=== PATIENT | female | born 1950 | race Caucasian/White ===

== ENCOUNTER → 2017-06-23 | Outpatient (CLI) | payer MEDICARE | END | disposition home or self-care (01) | LOC: CFH 08:09 | PROVIDERS: ATTEND Internal Medicine | DX: R05 Cough (principal); R06.02 Shortness of breath | CPT/HCPCS: 71250 ==

== ENCOUNTER 2019-11-09 13:48 | Outpatient (CLI) | payer MEDICARE ==
[2019-11-09] MEDS ORDERED: METAMUCIL PO (14:20)
[2019-11-09] MEDS ORDERED: [UNRECOGNIZED DRUG - OTHER] PO (14:20)
[2019-11-09] MEDS ORDERED: FLUTICASONE PO (14:20)
[2019-11-09] MEDS ORDERED: HYDROCHLOROTH12.5 MG PO (14:20)
[2019-11-09] MEDS ORDERED: ALBU8.5H8 INH (14:20)
[2019-11-09] MEDS ORDERED: LEVO25TA4 PO (14:20)
[2019-11-09] MEDS ORDERED: OXYB10TA2 PO (14:20)
[2019-11-09] MEDS ORDERED: AMLO10TA8 PO (14:20)
[2019-11-09] MEDS ORDERED: LOSA50TA14 PO (14:20)
[2019-11-09] MEDS ORDERED: OMEP-110 PO (14:20)
[2019-11-09 15:11] LABS: BASOPHILS # (AUTO) 0.07 x10^3/uL (0-0.1); BASOPHILS % (AUTO) 1 % (0-1); EOSINOPHILS # (AUTO) 0.43 x10^3/uL (0-0.4); EOSINOPHILS % (AUTO) 5 % (1-7); LYMPHOCYTES # (AUTO) 2.26 x10^3/uL (1-3.4); LYMPHOCYTES % (AUTO) 27 % (22-44); MD NO; MEAN CORPUSCULAR HEMOGLOBIN 30.3 pg (27.0-34.8); MEAN CORPUSCULAR HGB CONC 32.9 g/dL (32.4-35.8); MEAN CORPUSCULAR VOLUME 92.2 fL (80-100); MEAN PLATELET VOLUME 8.7 fL (7.4-10.4); MONOCYTES # (AUTO) 0.67 x10^3/uL (0.2-0.8); MONOCYTES % (AUTO) 8 % (2-9); NEUTROPHILS # (AUTO) 4.97 x10^3/uL (1.8-6.8); NEUTROPHILS % (AUTO) 59 % (42-75); PLATELET COUNT 339 x10^3/uL (130-400); RED BLOOD COUNT 4.98 x10^6/uL (3.82-5.3); RED CELL DISTRIBUTION WIDTH 13.4 % (9.6-15.2)
[2019-11-09 15:14] LABS: ALANINE AMINOTRANSFERASE 37 U/L (12-78); ALBUMIN 3.6 g/dL (3.4-5.0); ANION GAP 6 mmol/L (5-15); CALCIUM 8.7 mg/dL (8.5-10.1); CHLORIDE 106 mmol/L (98-107)
[2019-11-09 15:17] LABS: ALKALINE PHOSPHATASE 104 U/L (45-117); BILIRUBIN,TOTAL 0.3 mg/dL (0.2-1.0); CREATININE 0.72 mg/dL (0.55-1.02); TOTAL PROTEIN 7.7 g/dL (6.4-8.2)
[2019-11-09 15:25] LABS: INTERNATIONAL NORMALIZED RATIO 0.98 (0.93-1.1); PROTHROMBIN TIME 10.3 Seconds (9.6-11.5)
== END 2019-11-09 23:59 | disposition home or self-care (01) ==
LOC: STAR 13:48
PROVIDERS: ATTEND Orthopaedic Surgery
DX: M17.11 Unilateral primary osteoarthritis, right knee (principal); M25.561 Pain in right knee
CPT/HCPCS: 36415; 80053; 83036; 85025; 85610; 85730; 87081; 93005

== ENCOUNTER 2019-11-16 09:35 | Observation (INO) | payer MEDICARE ==
[~2019-11-16] VITALS: Ht 165.1 cm; Wt 106.6 kg
[2019-11-16] MEDS: NS + 20MEQ KCL 1,000 ML IV SCH ×2 (06:24→21:00)
[2019-11-16] MEDS: OMEPRAZOLE 20 MG CAPSULE.DR PO SCH (09:00)
[~2019-11-16 09:35] MED LIST: ALBU8.5H8 INH; AMLO10TA8 PO; BISACODYL 10 MG SUPP PR PRN; CEFAZOLIN 1,000 MG ONE; DIPHENHYDRAMINE 25 MG CAPSULE PO PRN; EPINEPHRINE 1 MG/ML, 1ML ONE; FENTANYL PF 250 MCG/5ML ONE; FLUTICASONE PO; HYDROCHLOROTH12.5 MG PO; HYDROcodone/APAP 5/325 TABLET PO PRN; HYDROmorphone 1 MG/ML, 1ML INJ IV PRN; KETOROLAC 60 MG/2 ML ONE; LEVO25TA4 PO; LOSA50TA14 PO; MAGNESIUM HYDROXIDE 8%, 30ML UDC PO PRN; METAMUCIL PO; MIDAZOLAM 1 MG/ML, 2ML ONE; OMEP-110 PO; ONDANSETRON 2MG/ML, 2ML IV PRN; ONDANSETRON 2MG/ML, 2ML ONE; ONDANSETRON 4 MG TABLET PO PRN; OXYB10TA2 PO; PROPOFOL 10 MG/ML, 20ML ONE; ROPIvacaine/PF 0.5%, 30 ML ONE; SCOPOLAMINE PATCH, 1.5MG PATCH.TD72 TD ONE; SENNA/DOCUSATE TABLET PO PRN; SODIUM CHLORIDE 0.9% 50 ML ONE; TEMPLATE NON-FORMULARY MED. (Albuterol Sulfate (Proair Hfa) 1 PUFF) INH SCH; TRANEXAMIC ACID 100 MG/ML, 10ML ONE; VANCOMYCIN 1,000 MG ONE; ZOLPIDEM 5MG TABLET PO PRN; [UNRECOGNIZED DRUG - OTHER] PO
[2019-11-16] MEDS ORDERED: LACTATED RINGERS 1,000 ML IV SCH (09:54)
[2019-11-16] MEDS ORDERED: LIDOCAINE-MPF 1%, 2ML INFIL ONE (10:00)
[2019-11-16] MEDS ORDERED: GABAPENTIN 300 MG CAPSULE PO ONE (10:00)
[2019-11-16] MEDS ORDERED: ACETAMINOPHEN 500 MG TABLET PO ONE (10:00)
[2019-11-16 10:07] VITALS: BP 177/80
[2019-11-16] MEDS ORDERED: LIDOCAINE-MPF 1%, 2ML ONE (10:13)
[2019-11-16] MEDS ORDERED: ACETAMINOPHEN 500 MG TABLET ONE (10:38)
[2019-11-16] MEDS ORDERED: LORazepam 2 MG/ML, 1ML IVPush PRN (11:30)
[2019-11-16] MEDS ORDERED: FENTANYL PF 100 MCG/2ML IV PRN (11:30)
[2019-11-16] MEDS ORDERED: HYDROmorphone 1 MG/ML, 1ML INJ IVPush PRN (11:30)
[2019-11-16] MEDS ORDERED: ONDANSETRON 2MG/ML, 2ML IV PRN (11:30)
[2019-11-16] MEDS ORDERED: LABETALOL 5MG/ML, 20ML IV PRN (11:30)
[2019-11-16] MEDS ORDERED: hydrALAzine 20 MG/ML, 1ML IV PRN (11:30)
[2019-11-16] MEDS ORDERED: OXYcodone 5 MG/5 ML ORAL.SOL UDC PO PRN (11:30)
[2019-11-16] MEDS ORDERED: NEOSTIGMINE 1 MG/ML, 10ML ONE (12:25)
[2019-11-16] MEDS ORDERED: GLYCOPYRROLATE 0.2MG/1ML, 5ML ONE (12:25)
[2019-11-16] MEDS ORDERED: MEPERIDINE/PF 25MG/ML,1ML ONE (12:51)
[2019-11-16] MEDS ORDERED: MEPERIDINE/PF 25MG/ML,1ML IVPush PRN (13:00)
[2019-11-16] MEDS ORDERED: FENTANYL PF 100 MCG/2ML ONE (13:25)
[2019-11-16] MEDS ORDERED: OXYcodone 5 MG/5 ML ORAL.SOL UDC ONE (13:26)
[2019-11-16] MEDS ORDERED: hydrALAzine 20 MG/ML, 1ML ONE (13:53)
[2019-11-16 14:21] VITALS: BP 155/73
[2019-11-16] MEDS: FLUTICASONE NASAL SPRAY 16GM NAS SCH (14:30)
[2019-11-16] MEDS: LOSARTAN 50MG TABLET PO SCH (15:50)
[2019-11-16] MEDS: DOCUSATE 100 MG CAPSULE PO SCH ×2 (15:50→20:26)
[2019-11-16] MEDS: HYDROCHLOROTHIAZIDE 12.5 MG CAPSULE PO SCH (15:50)
[2019-11-16] MEDS: ASPIRIN 81 MG TABLET EC PO SCH (17:24)
[2019-11-16] MEDS: CEFAZOLIN PMX 2GM/50ML 50 ML IVPB SCH (17:24)
[2019-11-16 19:58] VITALS: BP 126/55
[2019-11-16] MEDS: AMLODIPINE 10 MG TAB PO SCH (21:12)
[2019-11-16] MEDS: OXYBUTYNIN CHLORIDE 5 MG TABLET PO SCH (21:12)
[2019-11-17 00:15] VITALS: BP 133/60
[2019-11-17] MEDS: CEFAZOLIN PMX 2GM/50ML 50 ML IVPB SCH (01:15)
[2019-11-17] MEDS: OXYcodone IR 5MG TABLET PO PRN ×2 (01:30→05:37)
[2019-11-17 04:05] VITALS: BP 137/59
[2019-11-17] MEDS: LEVOTHYROXINE 125 MCG TABLET PO SCH (05:37)
[2019-11-17] MEDS: ASPIRIN 81 MG TABLET EC PO SCH ×2 (05:38→17:21)
[2019-11-17] MEDS ORDERED: DEXAMETHASONE 4 MG/ML, 1ML IVPush SCH (06:00)
[2019-11-17 06:51] VITALS: BP 126/67
[2019-11-17] MEDS: NS + 20MEQ KCL 1,000 ML IV SCH ×2 (07:28→22:00)
[2019-11-17] MEDS: FLUTICASONE NASAL SPRAY 16GM NAS SCH (09:14)
[2019-11-17] MEDS: DOCUSATE 100 MG CAPSULE PO SCH ×2 (09:15→21:08)
[2019-11-17] MEDS: OMEPRAZOLE 20 MG CAPSULE.DR PO SCH (09:15)
[2019-11-17] MEDS: ACETAMINOPHEN 650 MG/20.3 ML UDC PO PRN ×3 (09:15→21:08)
[2019-11-17] MEDS: LOSARTAN 50MG TABLET PO SCH (09:16)
[2019-11-17] MEDS: HYDROCHLOROTHIAZIDE 12.5 MG CAPSULE PO SCH (09:17)
[2019-11-17 12:36] VITALS: BP 134/73
[2019-11-17] MEDS ORDERED: OXYC5TAB2 PO (15:35)
[2019-11-17] MEDS ORDERED: TRAM50TA2 PO (15:36)
[2019-11-17] MEDS ORDERED: MELO7.5T31 PO (15:37)
[2019-11-17 19:56] VITALS: BP 138/71
[2019-11-17] MEDS: OXYBUTYNIN CHLORIDE 5 MG TABLET PO SCH (21:08)
[2019-11-17] MEDS: AMLODIPINE 10 MG TAB PO SCH (21:08)
[2019-11-18] MEDS: ACETAMINOPHEN 650 MG/20.3 ML UDC PO PRN ×3 (01:51→10:32)
[2019-11-18 02:08] VITALS: BP 141/61
[2019-11-18] MEDS: ASPIRIN 81 MG TABLET EC PO SCH (06:29)
[2019-11-18] MEDS: LEVOTHYROXINE 125 MCG TABLET PO SCH (06:29)
[2019-11-18 07:20] VITALS: BP 144/60
[2019-11-18] MEDS ORDERED: HYDROCHLOROTHIAZIDE 25 MG TABLET PO SCH (09:00)
[2019-11-18] MEDS: OMEPRAZOLE 20 MG CAPSULE.DR PO SCH (09:17)
[2019-11-18] MEDS: DOCUSATE 100 MG CAPSULE PO SCH (09:17)
[2019-11-18] MEDS: LOSARTAN 50MG TABLET PO SCH (09:18)
[2019-11-18] MEDS: FLUTICASONE NASAL SPRAY 16GM NAS SCH (09:21)
[2019-11-18] MEDS: NS + 20MEQ KCL 1,000 ML IV SCH (10:01)
[2019-11-18 10:33] VITALS: BP 151/69
== END 2019-11-18 11:34 | disposition home or self-care (01) ==
LOC: OUT 09:35 → 4NE 14:15 → OUT 20:24 → DCLOUNGE 11-18 11:09
PROVIDERS: ADMIT Orthopaedic Surgery; ATTEND Orthopaedic Surgery
DX: M17.11 Unilateral primary osteoarthritis, right knee (principal); J45.909 Unspecified asthma, uncomplicated; I10 Essential (primary) hypertension; E03.9 Hypothyroidism, unspecified; K21.9 Gastro-esophageal reflux disease without esophagitis; Z79.899 Other long term (current) drug therapy
CPT/HCPCS: 27447; 36415; 85014; 85018; 96365; 96366; 96375; 97110; 97116; 97162; 97166; 97530; C1713; C1776; G0378; J0171; J0360; J0690; J1100; J1885; J2175; J2250; J2405; J2704; J2710; J2795; J3010; J3370; J7120